=== PATIENT | female | born 1970 | race Caucasian/White ===

== ENCOUNTER 2018-05-07 17:58 | Emergency (ER) | payer OTHER ==
--- NOTE | 2018-05-07 19:34 | CT ---
HEAD CT WITHOUT CONTRAST: 05/07/2018 HISTORY: Headaches. History of migraines. COMPARISON: None. TECHNIQUE: Serial axial CT imaging at 4.8 mm intervals, from the vertex through the skull base, without contrast . FINDINGS: The imaged paranasal sinuses and mastoid air cells are well aerated. No displaced calvarial fracture . No intracranial hemorrhage, midline shift, mass effect, or ventricular enlargement. IMPRESSION: No acute findings. POS: [facility]
[2018-05-07] MEDS ORDERED: Metoclopramide HCl 10 MG/2 ML VIAL ONE (20:15)
[2018-05-07] MEDS ORDERED: Ketorolac Tromethamine 30 MG/ML VIAL ONE (20:15)
== END 2018-05-07 22:14 | disposition home or self-care (01) ==
LOC: SCSER 17:58
DX: R51 Headache (principal); I62.9 Nontraumatic intracranial hemorrhage, unspecified
CPT/HCPCS: 70450; 96365; 96375; J1885; J2765

== ENCOUNTER 2020-10-11 00:16 | Inpatient (IN) | payer OTHER, SELFPAY ==
[2020-10-11 00:51] VITALS: BMI 34.7
[2020-10-11 01:35] LABS: Lactic Acid 0.5 mmol/L (0.5-2.2)
[2020-10-11 01:39] LABS: ALT (SGPT) 412 U/L (8-55); AST (SGOT) 199 U/L (5-34); Albumin 3.8 g/dL (3.5-5.0); Alkaline Phosphatase 517 U/L (40-110); Anion Gap 15 mmol/L (10-20); BUN (Urea Nitrogen) 14 mg/dL (9.8-20.1); Bilirubin, Total 17.2 mg/dL (0.2-1.2); Calc. Creatinine Clearance 105 mL/min (70-130); Calcium 9.3 mg/dL (7.8-10.44); Carbon Dioxide 24 mmol/L (22-29); Chloride 103 mmol/L (98-107); Estimated GFR-MDRD 67; Glucose 103 mg/dL (70-105); Lipase 11 U/L (8-78); Magnesium 2.1 mg/dL (1.6-2.6); Potassium 3.6 mmol/L (3.5-5.1); Protein, Total 6.8 g/dL (6.0-8.3); Sodium 138 mmol/L (136-145)
[2020-10-11 01:47] LABS: #Eosinphils 0.1 thou/uL (0.0-0.7); #Lymphocytes 1.2 thou/uL (1.20-3.40); #Monocytes 0.7 thou/uL (0.11-0.59); #Neutrophils 4.7 thou/uL (1.40-6.50); %Basophils 0.4 % (0.0-1.0); %Eosinophils 1.2 % (0.0-10.0); %Lymphocytes 18.5 % (21.0-51.0); %Neutrophils 69.9 % (42.0-75.0); Hemoglobin 13.9 g/dL (12.0-16.0); Mean Corpuscular HGB CONC 33.6 g/dL (32.0-36.0); Mean Corpuscular Hemoglobin 30.3 pg (27.0-31.0); Mean Corpuscular Volume 90.3 fL (78.0-98.0); Mean Platelet Volume 7.9 fL (7.4-10.4); Platelet Count 246 thou/uL (130-400); Red Blood Cell (RBC) Count 4.59 mill/uL (4.20-5.40); White Blood Cell (WBC) Count 6.7 thou/uL (4.8-10.8)
--- NOTE | 2020-10-11 01:47 | PDOC.HHP ---
Hospitalist HPI - History of Present Illness History of Present Illness: ADMISSION DATE: 10/11/2020 TIME OF ASSESSMENT: 0030 PRIMARY CARE PHYSICIAN: None, recently moved here from [place] CHIEF COMPLAINT: Abdominal pain and jaundice HPI: Patient presents to the emergency department today at [facility] with complaints of abdominal discomfort and jaundice. She states she first developed an upset stomach last Tuesday. By the weekend she was having difficulty tolerating any oral intake. Reports having loose stools that on Tuesday became white/kaminski in color. She also noted generalized weakness and was feeling feverish. States she thought that was due to her going through menopause however when her stool colors changed she opted to seek medical attention. Reports having yellowing of her skin as well as diffuse itching. She attempted to establish care with a primary care physician, she recently moved from [place]. She was unable to get an appointment and due to persisting symptoms opted to come into the emergency department today. Did not have any notes from [facility] regarding her visit or medications given but according to the patient she was treated with morphine for her pain. Patient states she has had an episode like this a few months ago during the summer. She had noted yellowing of her skin and light-colored stools with abdominal discomfort. She had recently moved from [place] at that time and again because of not having established care with a primary care physician she did not seek medical attention. States she increase her fluid intake and e ventually her symptoms resolved spontaneously and on their own. We do have a CD with imaging studies done which included an abdominal ultrasound that demonstrated choledocholithiasis with extra and intrahepatic biliary dilation. Cholelithiasis and gallbladder sludge present. There was mild gallbl adder wall thickening and hepatomegaly present. HIDA scan was recommended She had a CT of the abdomen done as well showing cholelithiasis with proximal common bile duct dilation of approximately 13 mm. Laboratory studies done showed an ALT of 434, AST 236, alk phos 464, total bilirubin of 15.6. CRP was 17.3. BUN 14 and creatinine normal. White cell count 7.7. Hemoglobin 15 and platelets 282. Urinalysis unremarkable except for leukocytes. ROS: At present the patient states that her abdominal discomfort is minimal. She states when she tries to eat or drink her abdomen becomes bloated and she feels worsening discomfort. Has not had any vomiting today. No hematemesis or blood per rectum. No melena. No chest pain palpitations or shortness of breath. No headaches or dizziness. All other review systems are negative. PAST MEDICAL HISTORY: None PAST SURGICAL HISTORY: 1. Partial hysterectomy SOCIAL HISTORY: Patient lives with her family. Denies any tobacco use or drug use. Rare alcohol consumption. She is fully independent at baseline. FAMILY HISTORY: Her mother is and of COPD. ALLERGIES: Codeine CURRENT MEDICATIONS: None - Exam General Appearance: NAD, awake alert General - other findings: VS: Temp 98.1, HR 70, RR 18, O2 sat 98% on room air, BP 127/70. Eye: scleral icterus ENT: normocephalic atraumatic, no oropharyngeal lesions Neck: supple, no lymphadenopathy Heart: RRR, no murmur, normal peripheral pulses Respiratory: CTAB, no wheezes, no rales, no ronchi, normal chest expansion Gastrointestinal: soft, non-distended, normal bowel sounds, no guarding, no rigidity, tender to palpation (mild discomfort with palpation in RUQ) Extremities: no edema Skin: normal turgor, no lesions, no rashes Neurological: cranial nerve grossly intact, normal sensation to touch, no weakness Musculoskeletal: normal tone, normal strength, no muscle wasting Psychiatric: normal affect, normal behavior, A&O x 3 Hospitalist Results - Labs Result Diagrams: 10/11/20 01:09 Lab results: Sodium 138 mmol/L (136-145) 10/11/20 01:09 Potassium 3.6 mmol/L (3.5-5.1) 10/11/20 01:09 Chloride 103 mmol/L (98-107) 10/11/20 01:09 Carbon Dioxide 24 mmol/L (22-29) 10/11/20 01:09 BUN 14 mg/dL (9.8-20.1) 10/11/20 01:09 Creatinine 0.88 mg/dL (0.6-1.1) 10/11/20 01:09 Glucose 103 mg/dL (70-105) 10/11/20 01:09 Lactic Acid 0.5 mmol/L (0.5-2.2) 10/11/20 01:09 Calcium 9.3 mg/dL (7.8-10.44) 10/11/20 01:09 Total Bilirubin 17.2 mg/dL (0.2-1.2) H 10/11/20 01:09 AST 199 U/L (5-34) H 10/11/20 01:09 ALT 412 U/L (8-55) H 10/11/20 01:09 Alkaline Phosphatase 517 U/L (40-110) H 10/11/20 01:09 Serum Total Protein 6.8 g/dL (6.0-8.3) 10/11/20 01:09 Albumin 3.8 g/dL (3.5-5.0) 10/11/20 01:09 Lipase 11 U/L (8-78) 10/11/20 01:09 - Radiology Interpretation CT scan - abdomen Status: report reviewed by me Hospitalist H&P A/P - Problem (1) Cholelithiasis with choledocholithiasis Code(s): K80.70 - CALCULUS OF GB AND BILE DUCT W/O CHOLECYST W/O OBSTRUCTION Status: Acute (2) Abdominal pain Code(s): R10.9 - UNSPECIFIED ABDOMINAL PAIN Status: Acute (3) Obstructive jaundice Code(s): K83.1 - OBSTRUCTION OF BILE DUCT Status: Acute - Plan Plan: Will obtain labs here including CBC, CMP, lipase and direct bilirubin. Will check lactic acid as well as coags. GI consult placed Keep NPO. IV fluids ordered. GI prophylaxis with Famotidine. DVT Prophylaxis with mechanical SCDs ordered. CODE STATUS FULL Surrogate decision maker: Victoria Appiah, her daughter. Case discussed with attending who agrees with plan as above.
[2020-10-11] MEDS: Sodium Chloride 0.9% 1,000 ML IV SCH ×2 (02:15→08:44)
[2020-10-11] MEDS ORDERED: diphenhydrAMINE 25 MG CAP PO PRN (02:53)
[2020-10-11 08:11] LABS: Cardiac Risk 15.6 (Less than 4.5)
--- NOTE | 2020-10-11 08:33 | PDOC.HOSPP ---
- Subjective Encounter Date: 10/11/20 (f/u jaundice) Encounter Time: 08:31 Subjective: Pt admitted overnight for choledocholithiasis/obstructive jaundice, abd pain. She c/o pain returning and headache. She denies any current nausea. - Objective Vital Signs & Weight: Vital Signs (12 hours) Temp Pulse Resp BP Pulse Ox 10/11/20 06:00 98.3 F 63 17 128/62 10/11/20 00:48 98.3 F 64 17 123/60 99 10/11/20 00:16 98.1 F 70 18 127/70 98 Weight Weight 196 lb I&O: 10/10/20 10/11/20 10/12/20 06:59 06:59 06:59 Intake Total 700 Output Total 250 Balance 450 Result Diagrams: 10/11/20 01:09 10/11/20 01:09 Hospitalist ROS - Medication Medications: Active Medications Generic Name Dose Route Start Last Admin Trade Name Freq PRN Reason Stop Dose Admin Sodium Chloride 1,000 mls @ 100 mls/hr 10/11/20 02:00 10/11/20 02:15 Normal Saline 0.9% IV 1,000 mls .Q10H DANIELLE Administration - Exam General Appearance: NAD Heart: RRR, no murmur Respiratory: CTAB, no wheezes Gastrointestinal: soft, non-distended, normal bowel sounds Gastrointestinal - other findings: ttp along RUQ Extremities: no cyanosis, no clubbing, no edema Hosp A/P (1) Abdominal pain Code(s): R10.9 - UNSPECIFIED ABDOMINAL PAIN Status: Acute (2) Cholelithiasis with choledocholithiasis Code(s): K80.70 - CALCULUS OF GB AND BILE DUCT W/O CHOLECYST W/O OBSTRUCTION Status: Acute (3) Obstructive jaundice Code(s): K83.1 - OBSTRUCTION OF BILE DUCT Status: Acute - Plan Abd pain/choledocholithiasis/obstructive jaundice - npo - ivf - gi consult - anticipate procedure today - because of the obstructive jaundice, will start zosyn with goal of reducing likelihood of ascending cholangitis dvt prophy - scd's gi prophy - famotidine code status full reviewed plan of care with patient, no questions or further needs at end of eval.
[2020-10-11] MEDS: Famotidine/PF 20 mg/2ml Vial SLOW IVP SCH ×2 (08:37→21:00)
[2020-10-11] MEDS: Morphine 2 MG/ML VIAL SLOW IVP PRN ×3 (08:37→16:19)
[2020-10-11] MEDS: Piperacillin/Tazobactam 3.375 GM in Sodium Chloride 0.9% 100 ML IVPB SCH ×3 (09:47→21:00)
[2020-10-11] MEDS ORDERED: Dexamethasone 20 MG/5 ML VIAL ONE (11:54)
[2020-10-11] MEDS ORDERED: PROPOFOL 200 MG/20 ML VIAL ONE (11:54)
[2020-10-11] MEDS ORDERED: Ondansetron PF 4 MG/2 ML Vial ONE (11:54)
[2020-10-11] MEDS ORDERED: Lidocaine 1% PF 5 ML VIAL ONE (11:54)
[2020-10-11] MEDS ORDERED: Rocuronium Bromide 10 MG/ML (10ML VIAL) ONE (11:54)
[2020-10-11] MEDS ORDERED: Ketorolac Tromethamine 30 MG/ML VIAL ONE (11:54)
[2020-10-11] MEDS ORDERED: Calcium Carbonate 500 MG ChewTAB PO PRN (12:25)
[2020-10-11 13:44] LABS: INR-International Normal Ratio 1.1; PTT 45.4 sec (22.9-36.1); Prothrombin Time 14.6 sec (12.0-14.7)
[2020-10-11] MEDS ORDERED: Promethazine HCl 25 MG/ML VIAL IM PRN ×2 (17:55→22:42)
[2020-10-11] MEDS ORDERED: Promethazine HCl 25 MG/ML VIAL SLOW IVP PRN ×2 (17:55→22:42)
[2020-10-11] MEDS ORDERED: Ondansetron HCl/PF 4 MG/2 ML Vial IVP PRN ×2 (17:55→22:42)
[2020-10-11] MEDS ORDERED: Fentanyl 250 MCG/5 ML VIAL ONE (18:10)
[2020-10-11] MEDS ORDERED: Bupivacaine 0.25% HCL 30 ML VIAL ONE (18:30)
[2020-10-11] MEDS ORDERED: EPINEPHrine 1 MG/ML AMP ONE (18:30)
[2020-10-11] MEDS ORDERED: Iothalamate Meglumine 60% 50 ML VIAL FS ONE (21:29)
[2020-10-11] MEDS ORDERED: Indomethacin 50 MG SUPP PR SCH (21:30)
--- NOTE | 2020-10-11 22:36 | RAD ---
ERCP: 10/11/2020 HISTORY: ERCP FINDINGS: A single image is provided. Contrast media is seen within a partially opacified common bile duct. The common bile duct is not fully assessed proximally or distally. No contrast media is seen within the duodenum. There appears to be contrast media in the region of the gallbladder fossa. Quest ion catheter material curling in the right upper quadrant/gallbladder fossa. IMPRESSION: The biliary tree is not optimally assessed on the single provided view. Please see above discussion.
[2020-10-11] MEDS ORDERED: Fentanyl 100 MCG/2 ML VIAL ONE (22:42)
--- NOTE | 2020-10-11 23:34 | OP ---
DATE OF PROCEDURE: 10/11/2020 PREOPERATIVE DIAGNOSES: 1. Acute cholecystitis with cholelithiasis. 2. Choledocholithiasis. POSTOPERATIVE DIAGNOSES: 1. Acute cholecystitis with cholelithiasis. 2. Choledocholithiasis. PROCEDURE PERFORMED: Laparoscopic cholecystectomy. ANESTHESIA: General endotracheal. ESTIMATED BLOOD LOSS: 50 mL. FLUIDS GIVEN: 1000 mL crystalloids. COUNTS: Sponge and instrument counts were verified as correct x2. COMPLICATIONS: None apparent at the time of operation. INDICATIONS FOR OPERATION: A 50-year-old woman presented with painful jaundice associated with right upper quadrant abdominal pain with weight loss. Clinical and radiographic examination were consistent with acute cholecystitis and cholelithiasis. Additionally, she is noted with choledocholithiasis with dilated common bile duct size. The patient is being brought to the operating room for laparoscopic cholecystectomy, following which she will undergo ERCP under the same setting of general anesthesia. DESCRIPTION OF OPERATION: Informed consent was obtained from the patient, who was brought to the operating room and placed in supine position. Following general anesthesia, abdomen was sterilely prepped and draped in usual fashion. The skin below the umbilicus was infiltrated with 0.25% Marcaine with epinephrine. A small curvilinear infraumbilical incision was made using an 11 scalpel. Umbilical stalk was grasped with Joy and elevated. Veress needle was inserted through the incision placed in the peritoneal cavity, through which the abdomen was insufflated with 3 L of CO2 gas. Intraabdominal pressure was noted at 3 mmHg. Following abdominal insufflation, Veress needle was removed and a 5 mm trocar was introduced using a Visiport under laparoscopy. Laparoscopy revealed proper placement of the port. No injuries to underlying structures. Additional laparoscopy revealed the right upper quadrant completely encased by omental adhesions, which obscured the liver and gallbladder. Under direct laparoscopy, a 12 mm epigastric and two 5 mm right lateral subcostal ports were placed after the overlying skin were infiltrated with 0.25% Marcaine with epinephrine and appropriate incision was made. The patient was placed in a reverse Trendelenburg position rotated to her left. I introduced a [place] dissector with cautery, using this to take down omental adhesions to expose the fundus of a markedly distended and tense gallbladder. I decided therefore to decompress the gallbladder. To achieve this, I used an Endo suction catheter with cautery to perform a cholecystotomy at the dome of the gallbladder, evacuating excess white bile. A Prestige grasper was then introduced through the right lateral subcostal port grasping the fundus of the gallbladder, which was elevated cephalad. Prestige grasper was introduced through the right lateral subcostal port grasping the Hafsa pouch, which was retracted laterally. The infundibulum of the gallbladder was quite sclerotic and there was extensive amount of adhesions around the area. Adhesions were meticulously taken down bluntly. I opened the peritoneum of the infundibulum, starting high to dissect off an anterior coursing cystic artery. The cystic duct was markedly dilated and sclerotic and I was able to meticulously dissect off surrounding structures following the cystic duct to its course as it enters into a markedly dilated common bile duct. The cystic artery was divided between clips applying 2 clips proximally and 1 clip at the junction of the cystic duct and gallbladder. The cystic duct was quite large and I was able to open the gallbladder at the infundibulum, evacuating excess white bile as multiple tiny stones egressed through the opening that I made. I decided therefore to amputate the gallbladder at this level since it appeared the cystic duct itself was occluded. The remainder of the gallbladder was removed from the liver bed using cautery and delivered off the abdominal cavity using an EndoCatch. Operative site was irrigated clear with saline. I introduced a #19 Baldev drain into the subhepatic space and allowing this to exit through the right lateral subcostal port site. The drain was secured to anterior abdominal wall using 2-0 silk suture. Fascia of the epigastric port was closed using 0 Vicryl suture and Endoclosure device under laparoscopy. Finding no other pathology, laparoscopy was terminated. Abdomen was desufflated after all ports and instruments were reported as correct x2. Skin incisions were then closed using 4-0 Monocryl suture in subcuticular fashion. Dermabond was applied over incisional closure. The patient tolerated this operation without any apparent complication and was turned over to Gastroenterology, who will proceed with ERCP. Job ID: [id number]
[2020-10-12] MEDS: Piperacillin/Tazobactam 3.375 GM in Sodium Chloride 0.9% 100 ML IVPB SCH ×7 (00:21→23:54)
[2020-10-12] MEDS: Morphine 2 MG/ML VIAL SLOW IVP PRN ×2 (00:47→05:15)
--- NOTE | 2020-10-12 04:58 | PRG ---
DATE OF SERVICE: 10/11/2020 SUBJECTIVE: The patient was seen this evening during rounds. She was lying in bed, resting comfortably and asleep with no signs of acute distress. Nursing reported no acute events. She is postoperative day 0, status post laparoscopic cholecystectomy for acute cholecystitis and cholelithiasis. OBJECTIVE: VITAL SIGNS: Temperature 97.8, pulse 89, respirations 18, oxygen saturation 94% on room air, blood pressure 142/63. GENERAL: Well-appearing middle-aged female, lying in bed, resting comfortably and asleep with no signs of acute distress. PULMONARY: Equal chest rise and fall. No signs of acute respiratory distress. ASSESSMENT: 1. Postop day 0, status post lap cholecystectomy for acute cholecystitis and cholelithiasis. 2. Jaundice. PLAN: Continue clear liquid diet and normal saline. Continue IV antibiotics. The patient to be up out of bed and ambulating in the morning. Repeat blood work in the morning. Dr. Eagle to re-evaluate in the morning time. Job ID: [id number]
[2020-10-12] MEDS: Sodium Chloride 0.9% 1,000 ML IV SCH ×5 (05:17→17:27)
[2020-10-12 07:22] LABS: Phosphorus 3.8 mg/dL (2.3-4.7)
[2020-10-12 07:26] LABS: ALT (SGPT) 365 U/L (8-55); AST (SGOT) 186 U/L (5-34); Albumin 3.6 g/dL (3.5-5.0); Alkaline Phosphatase 562 U/L (40-110); Anion Gap 17 mmol/L (10-20); BUN (Urea Nitrogen) 16 mg/dL (9.8-20.1); Bilirubin, Total 15.8 mg/dL (0.2-1.2); Calc. Creatinine Clearance 96 mL/min (70-130); Carbon Dioxide 21 mmol/L (22-29); Chloride 103 mmol/L (98-107); Estimated GFR-MDRD 61; Glucose 131 mg/dL (70-105); Magnesium 1.7 mg/dL (1.6-2.6); Protein, Total 6.6 g/dL (6.0-8.3); Sodium 137 mmol/L (136-145)
[2020-10-12 07:39] LABS: Lipase 3685 U/L (8-78)
[2020-10-12 08:00] LABS: Bilirubin, Direct 12.3 mg/dL (0.1-0.3)
[2020-10-12] MEDS ORDERED: oxyCODONE 5 MG TAB PO PRN (08:13)
[2020-10-12] MEDS ORDERED: Morphine 2 MG/ML VIAL SLOW IVP PRN ×2 (08:14→08:20)
--- NOTE | 2020-10-12 08:16 | PDOC.HOSPP ---
- Subjective Encounter Date: 10/12/20 (f/u choledocholithiasis) Encounter Time: 08:14 Subjective: Pt c/o worsening pain today - states the morphine is not helping. She denies any n/v or other concerns. - Objective Vital Signs & Weight: Vital Signs (12 hours) Temp Pulse Resp BP Pulse Ox 10/12/20 06:00 98.0 F 85 18 158/78 H 10/12/20 02:00 80 18 139/62 97 10/12/20 01:15 89 18 142/63 H 94 L 10/12/20 00:50 75 18 139/69 97 10/11/20 23:25 97.7 F 66 18 143/71 H 98 Weight Admit Weight 196 lb Weight 196 lb I&O: 10/11/20 10/12/20 10/13/20 06:59 06:59 06:59 Intake Total 700 1550 Output Total 250 1415 95 Balance 450 135 -95 Result Diagrams: 10/11/20 01:09 10/12/20 06:52 Additional Labs: Elevated lipase Hospitalist ROS - Medication Medications: Active Medications Generic Name Dose Route Start Last Admin Trade Name Freq PRN Reason Stop Dose Admin Calcium Carbonate 1,000 mg 10/11/20 12:25 10/11/20 12:54 Calcium Carbonate 500 Mg Chewtab PO 1,000 mg Q4H PRN Administration Heartburn or Indigestion Diphenhydramine HCl 25 mg 10/11/20 02:53 10/12/20 01:34 Diphenhydramine 25 Mg Cap PO 25 mg Q4H PRN Administration Itching Famotidine 20 mg 10/11/20 09:00 10/11/20 21:00 Famotidine/Pf 20 Mg/2ml Vial SLOW IVP Not Given Q12HR DANIELLE Sodium Chloride 1,000 mls @ 100 mls/hr 10/11/20 02:00 10/12/20 05:17 Normal Saline 0.9% IV 1,000 mls .Q10H DANIELLE Administration Piperacillin Sod/Tazobactam 100 mls @ 200 mls/hr 10/11/20 23:59 10/12/20 06:00 Sod 3.375 gm/ Sodium Chloride IVPB Not Given Q6HR DANIELLE - Exam General Appearance: NAD Heart: RRR, no murmur Respiratory: CTAB, no wheezes, no rales, no ronchi Gastrointestinal: soft Gastrointestinal - other findings: ttp throughout, hypoactive bowel sounds Extremities: no cyanosis, no clubbing, no edema Psychiatric: normal affect Hosp A/P (1) Abdominal pain Code(s): R10.9 - UNSPECIFIED ABDOMINAL PAIN Status: Acute (2) Cholelithiasis with choledocholithiasis Code(s): K80.70 - CALCULUS OF GB AND BILE DUCT W/O CHOLECYST W/O OBSTRUCTION Status: Acute (3) Obstructive jaundice Code(s): K83.1 - OBSTRUCTION OF BILE DUCT Status: Acute (4) Pancreatitis Code(s): K85.90 - ACUTE PANCREATITIS WITHOUT NECROSIS OR INFECTION, UNSP Status: Acute - Plan Abd pain/choledocholithiasis/obstructive jaundice with pancreatitis - s/p cholecystectomy and ERCP yesterday - NPO - Increase IVF rate - add morphine 4 mg option - appreciate Gen Surg and GI consults dvt prophy - scd's gi prophy - famotidine code status full reviewed plan of care with Dr Eagle and patient, no questions or further needs at end of eval.
[2020-10-12] MEDS ORDERED: Promethazine HCl 25 MG/ML VIAL IM PRN (08:25)
[2020-10-12] MEDS ORDERED: diphenhydrAMINE 25 MG CAP PO PRN (08:25)
[2020-10-12] MEDS ORDERED: diphenhydrAMINE 50 MG/ML VIAL IM PRN (08:25)
[2020-10-12] MEDS ORDERED: diphenhydrAMINE 50 MG/ML VIAL IVP PRN (08:25)
[2020-10-12] MEDS ORDERED: Naloxone HCl 0.4 mg/ml Vial IV PRN (08:25)
[2020-10-12] MEDS ORDERED: Ondansetron PF 4 MG/2 ML Vial IVP PRN (08:25)
[2020-10-12 08:27] LABS: #Lymphocytes 0.4 thou/uL (1.20-3.40); #Monocytes 0.4 thou/uL (0.11-0.59); #Neutrophils 9.1 thou/uL (1.40-6.50); %Basophils 0.1 % (0.0-1.0); %Eosinophils 0.1 % (0.0-10.0); %Lymphocytes 4.2 % (21.0-51.0); %Monocytes 4.2 % (0.0-10.0); %Neutrophils 91.3 % (42.0-75.0); Mean Corpuscular HGB CONC 34.2 g/dL (32.0-36.0); Mean Corpuscular Hemoglobin 30.8 pg (27.0-31.0); Mean Corpuscular Volume 90.2 fL (78.0-98.0); Mean Platelet Volume 8.3 fL (7.4-10.4); Platelet Count 276 thou/uL (130-400); RBC Distribution Width 13.1 % (11.5-14.5); Red Blood Cell (RBC) Count 4.55 mill/uL (4.20-5.40)
[2020-10-12] MEDS ORDERED: Communication Order-Pharmacy FS SCH (08:30)
[2020-10-12] MEDS: Enoxaparin Sodium 40 MG/0.4 ML SYRINGE SC SCH (08:52)
[2020-10-12] MEDS: Famotidine/PF 20 mg/2ml Vial SLOW IVP SCH ×2 (08:53→21:10)
[2020-10-12] MEDS: Ketorolac Tromethamine 30 MG/ML VIAL IVP PRN ×2 (08:53→21:03)
--- NOTE | 2020-10-12 11:15 | PRG ---
DATE OF SERVICE: 10/12/2020 SUBJECTIVE: Ms. Banks is a 50-year-old woman, postop day #1, status post laparoscopic cholecystectomy, followed by ERCP with common bile duct stone extraction. The patient is awake and alert this morning. She reports 9/10 abdominal pain, which is not well controlled with current analgesics. Her urinary output remains adequate for her weight. Soy-Stafford drain returns moderate amount of serosanguineous fluid. OBJECTIVE: VITAL SIGNS: This morning include blood pressure 179/82, pulse 85, respiratory rate is 18, temperature 98.3 degrees Fahrenheit, oxygen saturation 99% on room air. HEENT: She remains with bilateral scleral icterus. She is jaundiced. HEART: Reveals regular rate and rhythm. LUNGS: Clear to auscultation bilaterally. Her breathing is regular and nonlabored. ABDOMEN: Soft. Diffusely tender to palpation. NEUROLOGIC: Reveals no focal deficits present. LABORATORY FINDINGS: Today include a CBC with 10,000 white blood cells, hemoglobin and hematocrit are stable at 14.0 and 41.1 respectively, and platelet count is 276,000. Metabolic profile; sodium 137, potassium 4.0, chloride is 103, bicarb is 21, BUN is 16, creatinine is 0.96, glucose 131, magnesium is 1.7, phosphorus 3.8, total bilirubin is 15.8, direct bilirubin is 12.3, AST and ALT marginally improving at 186 and 365 respectively, this is in contrast to 199 and 412 yesterday, alkaline phosphatase remains elevated at 562. Serum lipase which was normal yesterday, is now markedly elevated at 3685. IMPRESSIONS: 1. Postop day #1, status post laparoscopic cholecystectomy for acute on chronic cholecystitis with cholelithiasis as well as ERCP for choledocholithiasis. 2. Acute gallstone pancreatitis. PLAN: The patient will be placed on bowel rest. We will start a TOY MAKER for better pain management. We will increase activity as the patient tolerates. Job ID: [id number]
--- NOTE | 2020-10-12 11:41 | CON ---
DATE OF CONSULTATION: 10/11/2020 REQUESTING PHYSICIAN: Isa Grewal MD HISTORY: Ms. Banks is a 50-year-old woman who presented to a freestanding emergency department yesterday complaining of worsening abdominal pain associated with nausea and real-colored stools. She has been fatigued and lost approximately 30 pounds over the last several months, which she attributed to the stress of moving. She recalls having multiple episodes of diarrhea, which 3 days ago, she noticed that her stool had no color and floated. Additionally, she has been jaundiced over the last 3 to 4 days with associated pruritus. She denies any fevers or chills. She had experienced a similar episode of abdominal pain associated with some jaundice several months ago, which resolved spontaneously. During her visit at [facility] Emergency Department workup included CT scan of the abdomen and pelvis as well as ultrasound, which were significant for distended gallbladder with gallbladder wall thickening, intra and extrahepatic biliary ductal dilatation as well as cholelithiasis and choledocholithiasis. At the time of my evaluation, she is awake and alert. She reports adequate pain control. PAST MEDICAL HISTORY: She denies any previous medical problems. PAST SURGICAL HISTORY: Pertinent for partial hysterectomy. SOCIAL HISTORY: She is , lives at home with her family. She denies any cigarette smoking, ethanol, or illicit drug abuse. FAMILY HISTORY: Notable for mother who from complications of COPD. She denies any family history of colon cancer, inflammatory bowel disease, heart disease, or diabetes mellitus. MEDICATIONS: Pre-hospitalization medication includes multiple vitamins. ALLERGIES: TO CODEINE. REVIEW OF SYSTEMS: Ten-point review of systems essentially unremarkable except as stated in Past Medical History and Chief Complaint. PHYSICAL EXAMINATION: GENERAL: This reveals a 50-year-old normally developed woman, who is otherwise coherent, interactive, and appears stated age. The patient is alert and oriented x3, appears to be in no acute distress at the time I evaluated her this afternoon. VITAL SIGNS: At the time included a blood pressure of 173/81, pulse 74 respiratory rate is 18, maximum temperature in the last 24 hours is 98.3 degrees Fahrenheit, oxygen saturation 98% on room air. HEENT: Reveals severe bilateral scleral icterus. Pupils are equal, round, reactive to light and accommodation. NECK: She has no jugular venous distention noted. HEART: Reveals regular rate and rhythm. No murmurs or gallops auscultated. LUNGS: Clear to auscultation bilaterally. Her breathing is regular and nonlabored. ABDOMEN: Soft and nondistended. She has moderate right upper quadrant tenderness to palpation with a negative Coppola sign. Liver and spleen nonpalpable below costal margins. NEUROLOGIC: Reveals no focal deficits present. MUSCULOSKELETAL: Reveals severe jaundice. She has no motor or sensory deficit identified. LABORATORY FINDINGS: Today include a CBC with 6700 white blood cells, hemoglobin and hematocrit of 13.9 and 41.4 respectively, platelet count is 246,000. PTT and INR of 45.4 and 1.1 respectively. Metabolic profile; sodium 138, potassium 3.6, chloride is 103, bicarb 24, BUN 14, creatinine 0.88, glucose 103. Lactic acid 0.5. Total bilirubin 17.2 with a direct bilirubin of 12.5, AST and ALT are 199 and 412 respectively, alkaline phosphatase is also elevated at 517. Serum lipase is normal at 11. I did personally review the accompanying CT scan of the abdomen and pelvis as well as the abdominal ultrasound, which were remarkable for: 1. Distended gallbladder with multiple intraluminal gallstones and biliary sludge. 2. There is biliary ductal dilatation. 3. Common bile duct is also dilated for this patient's age, at 13 mm in diameter. IMPRESSION: 1. Acute cholecystitis with cholelithiasis. 2. Choledocholithiasis with painful jaundice. RECOMMENDATIONS: Laparoscopic cholecystectomy followed by ERCP. Above findings and plan have been discussed with the patient, who indicates understanding of information provided. I have advised of the risks and benefits of proposed surgery to include, but not limited to bleeding, infection, injury to bile duct or surrounding structures. This visit and information was provided to the patient in the presence of her nurse. The patient indicated understanding of information provided. I have answered her questions. The patient has granted consent for the surgical intervention. Thank you again, Dr. Grewal, for allowing me the opportunity to participate in the care of this patient. Job ID: [id number]
--- NOTE | 2020-10-12 11:51 | CON ---
DATE OF CONSULTATION: 10/11/2020 HISTORY OF PRESENT ILLNESS: This is a 50-year-old female, seen in [facility] last night with abdominal pain, nausea, and some fever.. The pain started about nine days ago, and she tried to go to her primary care doctor, but she was not able to do it. The pain is over the right upper quadrant and epigastric area. The pain is crampy in nature and at times mild to moderate. The pain got worse last night and she went to the ER. In the [facility] ER, she had an abdominal sonogram and was found to have dilation of the common bile duct and gallstones. Liver function test was markedly elevated. Her bilirubin 17.2 mg and the transaminases are markedly elevated to AST of 199, ALT of 412, alkaline phosphatase 517. Abdominal CAT scan again shows confirmation of the sonogram findings. The patient had similar episodes in the summer of this year and worsening jaundice, abdominal pain, and nausea. After a few days, it got better. She did not seek any medical help. Apparently, she had moved from [place] to [facility] five months ago. She had done well until about nine days ago when she had recurrence of abdominal pain. Her symptoms persisted and got slowly progressively worse. She also has some low-grade fever. She had no relevant history. ALLERGIES: NO KNOWN DRUG ALLERGIES. SOCIAL HISTORY: The patient does not smoke or drink alcohol. MEDICAL ILLNESSES: None. SURGERIES: 1. Tubal ligation. 2. Partial hysterectomy. FAMILY HISTORY: Nonrelevant. REVIEW OF SYSTEMS: A 10-point system review. CONSTITUTIONAL: History of some fever off and on recently. No history of any weight loss. No history of any change in exercise tolerance. HEAD: No chronic headache. No dizziness. EENT: No diplopia. No impaired vision. No hearing loss. No nose bleed. No sore throat. BREASTS: No breast masses. No lumps. LUNGS: No chronic coughing, hemoptysis, or dyspnea. CARDIOVASCULAR SYSTEM: No chest pain. No palpitation. No dyspnea. GI: Abdominal pain, nausea, vomiting, and also history of low-grade fever, dark urine and real-colored stools. She also had some itching off and on. : No dysuria or hematuria. MUSCULOSKELETAL: Nonrelevant. NEURO: Nonrelevant. ENDOCRINE: Nonrelevant. HEMATOLOGICAL: Nonrelevant. PHYSICAL EXAMINATION: GENERAL: She appears very comfortable. She is jaundiced. She is awake, alert, and communicative. VITAL SIGNS: Afebrile. Pulse is 65, blood pressure 175/79. HEENT: Conjunctivae icteric. NECK: Supple. No adenitis or thyromegaly noted. CARDIOVASCULAR SYSTEM: Normal heart sounds. LUNGS: Clear to auscultation. ABDOMEN: Soft. Abdomen is nondistended. Abdomen is tender over the right upper quadrant and epigastric area. There is no rebound or guarding. No organomegaly. No masses. Bowel sounds are normal. EXTREMITIES: Reveal no edema. LABORATORY DATA: Show sodium 138, potassium 3.6, chloride 103, bicarb 24, BUN is 14, creatinine 0.88, glucose is 103, calcium 9.3, magnesium 2.1, bilirubin 17.2, direct bilirubin 12.5. AST 199, ALT 412, alkaline phosphatase 517, lipase 11, triglycerides 75, cholesterol 311. CBC has normal WBC count, normal hemoglobin and hematocrit, the polymorphs 69, lymphocytes 18. Abdominal sonogram shows dilation of common bile duct and gallstones. CLINICAL IMPRESSION: 1. Cholestatic jaundice with biliary obstruction. 2. Gallstones. 3. Previous partial hysterectomy. PLAN: ERCP and also recommend surgical input. The patient was explained about the ERCP procedure in detail. Potential risks like bleeding, perforation, sepsis, pancreatitis, and sometimes failure to cannulate. She understood the procedure. I did talk to Dr. Isa Grewal about having a surgical input. I will plan the ERCP as soon as possible today. Job ID: [id number] [facility]
[2020-10-12] MEDS: HYDROmorphone 10 mg/100 ml CADD IVPB PRN (13:07)
--- NOTE | 2020-10-12 13:29 | PRG ---
DATE OF SERVICE: 10/12/2020 SUBJECTIVE: A 50-year-old female hospitalized 2 days ago with abdominal pain, deep jaundice, and evidence of biliary obstruction. She underwent a laparoscopic cholecystectomy by Dr. Eagle last night and apparently there was a bile leak noted during the surgery. She underwent ERCP last night with phlebotomy and stone extraction with multiple stones removed. She had a biliary stent placement done last night. The patient continues complaining of abdominal pain. No nausea, no vomiting. The serum lipase was bumped up today, I believe most likely asymptomatic elevation and acute pancreatitis. There is no contrast injected during the ERCP. The liver function does really not coming down as expected. The bilirubin level remains high at 15.8, direct bili 12.3, AST 186, ALT 365, alkaline phosphatase 562. Lipase is 3685. OBJECTIVE: GENERAL: She is deeply jaundiced, in no distress. She got some pain medicine before I came to see her. Afebrile. VITAL SIGNS: Pulse is 85, blood pressure 179/82. CARDIOVASCULAR SYSTEM: Within normal limits. LUNGS: Within normal limits. ABDOMEN: Soft. Abdomen is nondistended. Abdomen is mildly tender over the right upper quadrant epigastric area. There is no rebound or guarding. IMPRESSION: 1. Status post laparoscopic cholecystectomy, bile leak. 2. Status post ERCP, sphincterotomy and stone extraction. 3. Status post biliary stent placement, 11 x 7. Overall impression; I am really not sure why the LFTs not coming down. The stent was in good place. Unfortunately, when I went to review the films, I had only one spot film and the other films probably did not come through when they tried to take pictures. Therefore final picture taken after stent was placed. However, there is only one picture came through. I have reviewed the pictures with Dr. Nathan and there is apparently a biliary leak. Interestingly, I could not really see the proximal ducts with the one picture. I am little concerned there could be an obstruction above the area of the bifurcation. I am little concerned about possible the bile duct. Will talk to Dr. Nathan, radiologist. PLAN: 1. Obtain a KUB of abdomen to look for the stent placement site. 2. HIDA scan stat to see for any biliary blockage. This was conveyed to the patient. 3. Follow up LFTs and lipase. Job ID: [id number]
--- NOTE | 2020-10-12 13:34 | RAD ---
Abdomen one view HISTORY: Abdominal pain. Biliary stent placement. FINDINGS: Mild gaseous distention of the colon and small bowel. Double bowel wall sign consistent wit h pneumoperitoneum from recent surgery. Radiopaque surgical drain overlies the right lateral abdomen. Hemostasis clips over the gallbladder f josh. A curved biliary stent projects over the expected location of the common bile duct, in good radiograp hic position. Findings were discussed with Dr. Resendiz at the time of the exam.
--- NOTE | 2020-10-12 14:28 | OP ---
DATE OF PROCEDURE: 10/11/2020 PREOPERATIVE DIAGNOSES: Positive jaundice, choledocholithiasis. POSTOPERATIVE DIAGNOSIS: Multiple common bile duct stone. OPERATIVE PROCEDURE: 1. Endoscopic retrograde cholangiopancreatography. with papillotomy. 1. Endoscopic retrograde cholangiopancreatography with balloon sweep of bile duct with extraction of common duct stone. 2. Endoscopic retrograde cholangiopancreatography with stent placement, size 11 x 7 cm because of bile leak noted during the procedure. DESCRIPTION OF PROCEDURE: The patient has undergone a laparoscopic cholecystectomy nearly 2 nights ago. Apparently, there was a suspicion of bile leak. There were also multiple defects in the bile duct during cholangiogram. The patient was intubated already for the surgical procedure. The patient was transferred to the fluoroscopy table. The patient was placed in left lateral position and turned on her stomach. The patient was also given Indocin suppositories 50 mg before the procedure. A bite block was placed. A Pentax video duodenoscope under direct vision passed down the oropharynx past the GE junction into the stomach and rapidly into the descending duodenum. The papilla was identified. The papilla appears to be of normal size, no bulging or any abnormal findings noted. There was no bile drainage noted. A papillotome was used to cannulate the bile duct over a guidewire selectively. Upon injection of the common bile duct contrast, the duct appears slightly dilated. There were at least 2 or 3 filling defects seen. Also at the cystic duct area, there was contrast extravasation indicating a bile leak. A generous papillotomy was made at 12 o'clock position about 1.5 cm. Following the papillotomy, there was brisk drainage of bile and multiple small pigment stones came out. The papillotome was changed to a biliary balloon size 9 to 12 mm. The balloon was inflated and was brought across the papilla with extraction of two good-sized stones measuring approximately 1+ cm. Both stones were pigmented. Subsequently, occlusion cholangiogram showed no more filling defects.It was elected to place a stent due to contrast extravasating out side the bile duct. The catheter advanced over guidewire into the bile duct. Over the catheter, biliary stent_size 11 x 7 advanced into the bile duct with out difficulty. The stent was left in place and it appears to be in good position. This was confirmed by fluoroscopy. The stomach was decompressed and the scope removed. RECOMMENDATIONS: 1. We will do repeat liver function tomorrow. 2. Clear liquid diet. 3. If she does well hopefully she can go home in the next 24 hours. Job ID: [id number] [facility]
--- NOTE | 2020-10-12 14:28 | NM ---
Radionucleotide hepatobiliary scan HISTORY: Abdominal pain. Evaluate for biliary leak and common duct obstruction. FINDINGS: Early images show physiologic uptake of radiotracer throughout the hepatic parenchyma. At 1 hour, slightly curvilinear uptake is present near the diane hepatis. No uptake is evident within bowel. At 2 hours, there is more clear definition of uptake within the central hepatic ducts. No uptake seen within the distal common bile duct or bowel. Uptake is seen within the surgical drain exiting the right abdomen. IMPRESSION : Evidence of bile leak, although the exact point of leak is not delineated on this exam, as it is deco mpressed by the surgical drain. Nonvisualization of the distal common bile duct and duodenum suggestive of high-grade or complete mariya tral hepatic biliary obstruction. Findings were discussed with Dr. Resendiz at time the exam. Code CR.
[2020-10-12] MEDS: Labetalol HCl 100 MG/20 ML VIAL SLOW IVP PRN (17:19)
--- NOTE | 2020-10-12 18:17 | MRI ---
MRCP: 10/12/2020 HISTORY: Abdominal pain, evaluate common bile duct. Evidence of biliary leak. Recent ERCP with common bile duct stent placement. History of removal of pus and stones from the common bile duct during ERCP. Recent hepatobiliary scan demonstrating evidence of biliary leak into a drainage tube along the under surface of the diane hepatis TECHNIQUE: Multiplanar multisequence MR imaging of the abdomen without contrast using the MRCP protoc ol FINDINGS: Patchy linear abnormality noted in the lung bases with probable small volume pleural fluid bilaterally. There is a postoperative drain inserted via an anterior lateral mid abdominal approach terminating in the region of the diane hepatis. There is moderate intrahepatic biliary dilatation involving the right and left hepatic ducts. The proximal common bile duct appears dilated, measuring approximately 1.1 cm. There is a T1 and T2 hypointense structure on coronal images 18 and 19 of the T2 sequence measuring 1 cm. This structure is at the distal tip of the dilated CBD. The common bile duct cannot b e discretely visualized distal to this. This is felt to likely be proximal to the common bile duct stent placed during recent ERCP. However, the common bile duct stent cannot be discretely visualized. This T1 and T2 hypointense structure is suspicious for a stone, possibly within the common bile duct causing common bile duct obstruction. There is extensive increased T2 signal within the diane hepatis anterior to and inferior to the gastr ic body, and extending inferiorly along the anterior pararenal space on the right. There is extensive increased T2 signal consistent with fluid surrounding the pancreas and extending into the l eft anterior pararenal space. Free fluid also extends superiorly into the left upper quadrant adjacent to the spleen. The distal nonvisualization of the common bile duct and the fluid within the diane hepatis supports the evidence of biliary leak seen on recent hepatobiliary scan. It is impossible to distinguish on the basis of this examination where the source of the biliary leak is em anating. This could represent leakage from the cystic duct remnant associated with recent cholecystectomy and/or could signify leak from an injured common bile duct. T2 hyperintense structures within both kidneys are most consistent with cysts. No acute osseous abnor mality is seen. No lymphadenopathy is apparent. Free intraperitoneal air is present, consistent with recent postoperative state. IMPRESSION: Dilated proximal common bile duct and intrahepatic ducts consistent with common bile duct obstruction. T2 and T1 hypointense structure at the inferior aspect of the dilated CBD may signify an obstructing stone within the duct. Extensive free fluid consistent with a biliary leak, location u ncertain on the basis of this exam. The biliary leak may be related to the cystic duct remnant or could be related to a common bile duct injury. There is evidence of extensive pancreatitis. Delineation of the area of leak would likely require injection of contrast media into the biliary angie e either via percutaneous cholangiogram or repeat ERCP. Results were discussed with Dr. Eagle at 6:00 PM 10/12/2020
--- NOTE | 2020-10-12 19:16 | PRG ---
DATE OF SERVICE: 10/12/2020 This is a 50-year-old female, hospitalized with obstructive jaundice, common bile duct stone, and dilation of common biliary tree. She underwent laparoscopic cholecystectomy followed by an ERCP and a stent placement yesterday. The patient's LFTs did not come down. She continued to have abdominal pain. She also has evidence of pancreatitis. The patient had a HIDA scan, which revealed leakage of the bile in the gallbladder fossa. The duodenum. There is a possibility of common bile duct injury, and an MRCP was ordered by Dr. Eagle this afternoon. The MRCP was by Dr. Sabas Hedrick. The common bile duct was seen on MRCP and there was a possibility of common bile duct transection. Dr. Sabas Hedrick was reviewing the MRI with me and he is the one who called Dr. Eagle . It appears the [facility] needs [facility]. Job ID: [id number]
[2020-10-13] MEDS: Sodium Chloride 0.9% 1,000 ML IV SCH (01:59)
[2020-10-13] MEDS: Ketorolac Tromethamine 30 MG/ML VIAL IVP PRN ×3 (03:06→21:05)
--- NOTE | 2020-10-13 03:12 | PRG ---
DATE OF SERVICE: 10/12/2020 SUBJECTIVE: The patient was seen this evening during rounds. She was sitting up in bed with no signs of acute distress. She reported that since receiving her Dilaudid SHARED SERVICES REPRESENTATIVE, her pain is much better controlled. She did complain of some mild itching with no signs of swelling or shortness of breath. She has previously received IV Benadryl, but requesting to take it p.o. The patient did have an MRCP today. OBJECTIVE: VITAL SIGNS: Temperature 98.9, pulse 71, respirations 18, oxygen saturation 97% on room air, and blood pressure 123/61. GENERAL: A well-appearing middle-aged female, lying in bed with no signs of acute distress. PULMONARY: Equal chest rise and fall. No signs of acute respiratory distress. ABDOMEN: Soft, mildly tender to palpation and nondistended. ASSESSMENT: 1. Postop day #1, status post laparoscopic cholecystectomy for acute cholecystitis and cholelithiasis. 2. Concern for a possible bile duct leak or retained stone in the biliary tree. PLAN: Continue current n.p.o. with normal saline 150 an hour, continue Dilaudid SHARED SERVICES REPRESENTATIVE. Continue IV antibiotics. The patient will be seen by Dr. Eagle in the morning to discuss further evaluation and management postoperatively. If the patient's condition is to change overnight, Trauma Team will contact Dr. Eagle this evening. Job ID: [id number]
[2020-10-13] MEDS: Piperacillin/Tazobactam 3.375 GM in Sodium Chloride 0.9% 100 ML IVPB SCH ×3 (05:55→17:21)
--- NOTE | 2020-10-13 05:56 | PRG ---
DATE OF SERVICE: 10/12/2020 This is a 50-year-old female with biliary obstruction, cholecystitis, and obstructive jaundice. She underwent laparoscopic cholecystectomy by Dr. Eagle last night. This was followed by the ERCP by me and the cholangiogram showed filling defects. Initially, I felt the bile ducts visualized, however, with continued injection I saw a tract leading on the left side, and I presumed to be left hepatic duct. However, does appear to be left hepatic duct. I reviewed the x-rays this morning with Dr. Nathan. The bile duct and does not really flow into the proximal bile duct during the ERCP . There is contrast leak of the gallbladder fossa, also dye tracking down the left side almost simulating what I first thought was the left hepatic duct. Her liver function does not come down today. There is a concern for bile duct obstruction about the area of stent. She had a HIDA scan today and the HIDA scan again shows no contrast, visualization of the duodenum, but the gallbladder fossa. A flat abdomen done showed bile duct stent to be in good place. My concern is that the common bile duct was probably clipped, which could account for the liver functions are not coming down. The elevated lipase is most likely incidental, I do not think it has caused pancreatitis more of asymptomatic elevation. I did talk to Dr. Eagle a few minutes ago, I explained to him the possibility of common bile duct being clipped. He has planned to go on to do an MRCP today and we will make some recommendations afterwards. Job ID: [id number]
[2020-10-13 06:33] LABS: #Basophils 0.1 thou/uL (0.0-0.2); #Eosinphils 0.2 thou/uL (0.0-0.7); #Lymphocytes 1.1 thou/uL (1.20-3.40); #Monocytes 0.5 thou/uL (0.11-0.59); #Neutrophils 9.3 thou/uL (1.40-6.50); %Basophils 0.6 % (0.0-1.0); %Eosinophils 1.7 % (0.0-10.0); %Lymphocytes 9.6 % (21.0-51.0); %Monocytes 4.9 % (0.0-10.0); %Neutrophils 83.1 % (42.0-75.0); Hemoglobin 12.9 g/dL (12.0-16.0); Mean Corpuscular HGB CONC 33.7 g/dL (32.0-36.0); Mean Corpuscular Hemoglobin 31.2 pg (27.0-31.0); Mean Corpuscular Volume 92.8 fL (78.0-98.0); Mean Platelet Volume 7.6 fL (7.4-10.4); Platelet Count 275 thou/uL (130-400); RBC Distribution Width 13.6 % (11.5-14.5); Red Blood Cell (RBC) Count 4.12 mill/uL (4.20-5.40); White Blood Cell (WBC) Count 11.2 thou/uL (4.8-10.8)
[2020-10-13 07:00] LABS: ALT (SGPT) 214 U/L (8-55); AST (SGOT) 72 U/L (5-34); Albumin 3.2 g/dL (3.5-5.0); Alkaline Phosphatase 372 U/L (40-110); Anion Gap 11 mmol/L (10-20); BUN (Urea Nitrogen) 20 mg/dL (9.8-20.1); Bilirubin, Total 8.6 mg/dL (0.2-1.2); Calc. Creatinine Clearance 117 mL/min (70-130); Calcium 8.6 mg/dL (7.8-10.44); Carbon Dioxide 23 mmol/L (22-29); Chloride 106 mmol/L (98-107); Estimated GFR-MDRD 76; Globulin 2.9 g/dL (2.4-3.5); Glucose 82 mg/dL (70-105); Potassium 3.4 mmol/L (3.5-5.1); Protein, Total 6.1 g/dL (6.0-8.3); Sodium 137 mmol/L (136-145)
[2020-10-13 07:13] LABS: Lipase 4751 U/L (8-78)
--- NOTE | 2020-10-13 07:13 | PDOC.HOSPP ---
- Subjective Encounter Date: 10/13/20 (f/u choledocholithiasis) Encounter Time: 07:09 Subjective: Pt more comfortable with BATTERY TESTER. c/o itching - no relief from benadryl. She denies any n/v. She denies any problems with urinating - reported overnight UOP 550 ml. - Objective Vital Signs & Weight: Vital Signs (12 hours) Temp Pulse Resp BP Pulse Ox 10/13/20 03:00 97.8 F 75 18 127/58 L 10/12/20 23:50 98.9 F 71 18 123/61 10/12/20 20:55 97.8 F 79 18 147/64 H 97 Weight Admit Weight 196 lb Weight 196 lb I&O: 10/12/20 10/13/20 10/14/20 06:59 06:59 06:59 Intake Total 1550 1500 Output Total 1415 2325 Balance 135 -825 Result Diagrams: 10/13/20 06:17 10/13/20 06:17 Hospitalist ROS - Medication Medications: Active Medications Generic Name Dose Route Start Last Admin Trade Name Freq PRN Reason Stop Dose Admin Calcium Carbonate 1,000 mg 10/11/20 12:25 10/11/20 12:54 Calcium Carbonate 500 Mg Chewtab PO 1,000 mg Q4H PRN Administration Heartburn or Indigestion Diphenhydramine HCl 25 mg 10/12/20 08:25 10/12/20 21:15 Diphenhydramine 50 Mg/Ml Vial IVP 25 mg Q3H PRN Administration Itching Diphenhydramine HCl 25 mg 10/12/20 08:25 10/12/20 23:53 Diphenhydramine 25 Mg Cap PO 25 mg Q3H PRN Administration Itching Enoxaparin Sodium 40 mg 10/12/20 09:00 10/12/20 08:52 Enoxaparin Sodium 40 Mg/0.4 Ml Syringe SC 40 mg 0900 DANIELLE Administration Famotidine 20 mg 10/11/20 09:00 10/12/20 21:10 Famotidine/Pf 20 Mg/2ml Vial SLOW IVP 20 mg Q12HR DANIELLE Administration Hydromorphone HCl 0 mg 10/12/20 08:25 10/12/20 13:07 Hydromorphone 10 Mg/100 Ml Cadd IVPB 10 mg INF PRN Administration Pain Piperacillin Sod/Tazobactam 100 mls @ 200 mls/hr 10/11/20 23:59 10/13/20 05:55 Sod 3.375 gm/ Sodium Chloride IVPB 100 mls Q6HR DANIELLE Administration Ketorolac Tromethamine 30 mg 10/12/20 08:25 10/13/20 03:06 Ketorolac Tromethamine 30 Mg/Ml Vial IVP 10/15/20 08:26 30 mg Q6H PRN Administration Moderate Pain (4-6) Labetalol HCl 10 mg 10/12/20 16:09 10/12/20 17:19 Labetalol Hcl 100 Mg/20 Ml Vial SLOW IVP 10 mg Q4H PRN Administration Sbp Greater Than 150 - Exam General Appearance: NAD Heart: RRR, no murmur Respiratory: CTAB, no wheezes, no rales, no ronchi Gastrointestinal: soft, normal bowel sounds, tender to palpation Gastrointestinal - other findings: mild ttp throughout Extremities: no cyanosis, no clubbing, no edema Psychiatric: normal affect Hosp A/P (1) Abdominal pain Code(s): R10.9 - UNSPECIFIED ABDOMINAL PAIN Status: Acute (2) Cholelithiasis with choledocholithiasis Code(s): K80.70 - CALCULUS OF GB AND BILE DUCT W/O CHOLECYST W/O OBSTRUCTION Status: Acute (3) Obstructive jaundice Code(s): K83.1 - OBSTRUCTION OF BILE DUCT Status: Acute (4) Pancreatitis Code(s): K85.90 - ACUTE PANCREATITIS WITHOUT NECROSIS OR INFECTION, UNSP Stat us: Acute - Plan Abd pain/choledocholithiasis/obstructive jaundice with pancreatitis with possible bile leak s/p cholectystectomy and ERCP (Sep) - Drs. Eagle and Moises collaborating on plan of care - NPO - LFT's improved today, lipase is pending Hypokalemia - change IVF to NS with potassium and monitor dvt prophy - scd's gi prophy - famotidine code status full Reviewed plan of care with patient, no questions or further needs at end of eval.
[2020-10-13] MEDS: Enoxaparin Sodium 40 MG/0.4 ML SYRINGE SC SCH (08:08)
[2020-10-13] MEDS: Famotidine/PF 20 mg/2ml Vial SLOW IVP SCH ×2 (08:08→21:06)
[2020-10-13] MEDS: NS 0.9% w/ 20 MEQ KCL 1,000 ML/1,000 ML BAG IV SCH ×2 (08:08→15:34)
[2020-10-13 09:32] LABS: Magnesium 1.7 mg/dL (1.6-2.6); Phosphorus 2.7 mg/dL (2.3-4.7)
[2020-10-13] MEDS ORDERED: Potassium Phosphate 30 MMOL in Sodium Chloride 0.9% 250 ML 250 ML IVPB SCH (12:00)
[2020-10-13] MEDS ORDERED: Magnesium Sulfate 3 GM in Sodium Chloride 0.9% 100 ML IVPB SCH (12:00)
--- NOTE | 2020-10-13 12:21 | PRG ---
DATE OF SERVICE: 10/13/2020 SUBJECTIVE: Ms. Banks is a 50-year-old woman, postoperative day #2, status post laparoscopic cholecystectomy followed by postoperative endoscopic retrograde cholangiopancreatography with common bile duct stone extraction. The patient was seen yesterday, postoperative day #1 with elevated LFTs. At the time she was complaining of 8 to 9/10 abdominal pain. No nausea or vomiting. No fevers or chills. She has been on antibiotics since postop. She is passing flatus, but no bowel movement. She was noted on clinical examination to have acute pancreatitis. MRCP yesterday reveals no contrast within the distal common bile duct or small bowel. There is extravasation at the gallbladder fossa, which was unexpected given the gallbladder, which was transected at the infundibulum. The single view of the ERCP image noted guidewire, which was all the way to the liver, although the abdominal x-ray showed the biliary stent to be below the area of contrast extravasation. MRCP yesterday also showed a dilated common bile duct. This morning, the patient is awake and alert. She reports 3 to 4/10 abdominal pain with no nausea. She denies any dyspnea or syncope. She is still passing flatus, but not having any bowel movements. Urinary output remains adequate for this patient's age and weight. OBJECTIVE: VITAL SIGNS: Include blood pressure 141/78, pulse is 81, respiratory rate is 16, temperature is 98.4 degrees Fahrenheit, and oxygen saturation is 96% on room air. HEENT: She has decreasing scleral icterus as well as decrease in jaundice. HEART: Reveals regular rate and rhythm. No murmurs or gallops auscultated. LUNGS: Clear to auscultation bilaterally. Her breathing, regular, nonlabored. ABDOMEN: Soft with incisional tenderness to palpation with no significant peritoneal signs on examination. Soy-Stafford drain remains in place and is putting out a large amount of bilious fluid. Bowel sounds are present in all 4 quadrants. LABORATORY DATA: Laboratory findings today include a CBC with 11,200 white blood cells, hemoglobin and hematocrit are 12.9 and 38.2 respectively. The platelet count is 275,000. Metabolic profile; sodium 137, potassium 3.4, chloride is 106, bicarb is 23, BUN 20, creatinine 0.79, glucose is 82, magnesium is 1.7, and phosphorus is 2.7. Total bilirubin is now down to 8.6, compared to 15.8 yesterday. AST and ALT are also decreasing at 72 and 214 respectively compared to 186 and 365 respectively yesterday. Alkaline phosphatase is also decreasing at 372 compared to 562 yesterday. Serum lipase however is more elevated today at 4751 compared to 3685 yesterday. IMPRESSIONS: 1. Postoperative day #2 status post laparoscopic cholecystectomy. 2. Acute post endoscopic retrograde cholangiopancreatography pancreatitis. 3. Acute hypokalemia. 4. Acute hypomagnesemia. 5. Acute hypophosphatemia. 6. Resolving transaminitis. PLAN: 1. Continue with bowel rest and IV hydration with serial LFTs and lipase as I hope that this patient's pancreatitis will resolve. 2. I discussed with hepatobiliary surgeon from [facility], Dr. Bunch. He recommended that we will manage the patient conservatively and once the pancreatitis resolves and the patient is tolerating clear liquid diet, the patient could follow up with him in his clinic in [place]. 3. I have discussed the above plan with the patient in the presence of her nurse. She indicated understanding of information provided and agrees with the plan. We will correct current abnormal electrolytes. Job ID: [id number]
[2020-10-13] MEDS ORDERED: Potassium Phosphate 30 MMOL, Magnesium Sulfate 3 GM in Sodium Chloride 0.9% 250 ML 250 ML IVPB SCH (12:30)
[2020-10-13] MEDS: HYDROmorphone 10 mg/100 ml CADD IVPB PRN (15:08)
[2020-10-13] MEDS: Labetalol HCl 100 MG/20 ML VIAL SLOW IVP PRN (18:04)
[2020-10-13 20:15] LABS: ALT (SGPT) 184 U/L (8-55); AST (SGOT) 60 U/L (5-34); Albumin 3.4 g/dL (3.5-5.0); Alkaline Phosphatase 346 U/L (40-110); Bilirubin, Direct 6.5 mg/dL (0.1-0.3); Bilirubin, Total 8.8 mg/dL (0.2-1.2); Protein, Total 6.5 g/dL (6.0-8.3)
[2020-10-13 20:32] LABS: Lipase 2092 U/L (8-78)
[2020-10-14] MEDS: Piperacillin/Tazobactam 3.375 GM in Sodium Chloride 0.9% 100 ML IVPB SCH ×5 (00:11→23:19)
[2020-10-14] MEDS: NS 0.9% w/ 20 MEQ KCL 1,000 ML/1,000 ML BAG IV SCH ×2 (00:59→12:32)
--- NOTE | 2020-10-14 01:49 | PRG ---
DATE OF SERVICE: 10/13/2020 SUBJECTIVE: The patient was seen this evening during rounds. She was lying in bed with no signs of acute distress. She reported her pain is much better controlled. Stated she slept all day today, so she was awake at night. OBJECTIVE: VITAL SIGNS: Temperature 97.6, pulse 89, respirations 20, oxygen saturation 96% on room air, and blood pressure 145/66. GENERAL: Well-appearing, middle-aged female, lying in bed with no signs of acute distress. PULMONARY: Equal chest rise and fall. No signs of acute respiratory distress. ABDOMEN: Soft, mildly tender to palpation, nondistended. ASSESSMENT: Postop day 2 status post laparoscopic cholecystectomy due to cholecystitis and cholelithiasis. PLAN: Continue current n.p.o. diet. Continue [employer] and IV antibiotics. Continue IV fluids. Follow up lipase and LFTs in the morning. Lab values completed earlier this evening demonstrates improvement. Continue ambulation and pulmonary hygiene with incentive spirometry. Job ID: [id number]
--- NOTE | 2020-10-14 06:24 | PRG ---
DATE OF SERVICE: 10/13/2020 SUBJECTIVE: This is a 50-year-old female hospitalized over the weekend with abdominal pain, obstructive jaundice, abnormal LFTs, and also gallstones on sonogram. She underwent a laparoscopic cholecystectomy by Dr. Eagle on 10/11/2020 following the ERCP and stent placement. She had multiple pigmented stones removed in the ERCP. She had a size 11 x 7 cm stent placement done. Yesterday, after stent placement. She has continued abdominal pain. Unfortunately, she had findings of pancreatitis on lab data with lipase more than 3000. The patient had a HIDA scan which showed biliary leak. She also had MRCP done and the MRCP showed some cutoff of the CBD at the hilum. The patient has done well overnight. The patient appears actually much better today, although she has continued to have abdominal pain. There is no nausea or vomiting. Her liver function tests have started to coming down today as expected after the stent placement. LABORATORY DATA: Today shows the bilirubin down to 8.6, AST down to 72, ALT 214, alkaline phosphatase 372. Her lipase, however, has gone up to 4751. Her chem-7 is normal. Her magnesium is 1.7, phosphorus is 2.7. Her hemoglobin is 12.9, hematocrit is 38.2, WBC count 11,200, polymorphs 83, lymphocytes 9.6. OBJECTIVE: GENERAL: The patient appears comfortable compared to yesterday. VITAL SIGNS: Afebrile, pulse is 81, blood pressure is 140/72. SKIN: She has jaundice, but less intense than before. NECK: Supple. CARDIOVASCULAR SYSTEM: Normal heart sounds. LUNGS: Clear to auscultation. ABDOMEN: Soft and nondistended. Minimally tender over the epigastric area and towards left upper quadrant. No rebound or guarding. IMPRESSION: 1. Obstructive jaundice, gallstones. 2. Choledocholithiasis. 3. Status post laparoscopic cholecystectomy. 4. Endoscopic retrograde cholangiopancreatography with stent placement and also stone extraction. 5. Postoperative pancreatitis. The patient's ERCP on 10/11/2020 was very easy and not very difficult. The whole procedure took less than 30 minutes. 6. No pancreatic duct could be cannulated. The patient developed a lipase of 3000 postop. PLAN: 1. To keep her n.p.o. 2. Follow up LFTs and lipase. If lipase starts coming down may start clear liquid diet in the next 24 hours. Job ID: [id number]
[2020-10-14 07:00] LABS: #Eosinphils 0.3 thou/uL (0.0-0.7); #Lymphocytes 0.8 thou/uL (1.20-3.40); #Monocytes 0.5 thou/uL (0.11-0.59); #Neutrophils 9.4 thou/uL (1.40-6.50); %Basophils 0.2 % (0.0-1.0); %Eosinophils 2.3 % (0.0-10.0); %Lymphocytes 7.5 % (21.0-51.0); %Monocytes 4.8 % (0.0-10.0); %Neutrophils 85.1 % (42.0-75.0); Hemoglobin 11.8 g/dL (12.0-16.0); Mean Corpuscular HGB CONC 32.9 g/dL (32.0-36.0); Mean Corpuscular Hemoglobin 29.9 pg (27.0-31.0); Mean Corpuscular Volume 90.8 fL (78.0-98.0); Mean Platelet Volume 7.3 fL (7.4-10.4); Platelet Count 293 thou/uL (130-400); RBC Distribution Width 13.4 % (11.5-14.5); Red Blood Cell (RBC) Count 3.95 mill/uL (4.20-5.40); White Blood Cell (WBC) Count 11.1 thou/uL (4.8-10.8)
[2020-10-14 07:20] LABS: ALT (SGPT) 147 U/L (8-55); AST (SGOT) 48 U/L (5-34); Albumin 3.2 g/dL (3.5-5.0); Alkaline Phosphatase 298 U/L (40-110); Anion Gap 15 mmol/L (10-20); BUN (Urea Nitrogen) 10 mg/dL (9.8-20.1); Bilirubin, Direct 6.4 mg/dL (0.1-0.3); Bilirubin, Total 8.6 mg/dL (0.2-1.2); Calc. Creatinine Clearance 140 mL/min (70-130); Calcium 8.5 mg/dL (7.8-10.44); Carbon Dioxide 23 mmol/L (22-29); Chloride 102 mmol/L (98-107); Estimated GFR-MDRD Greater than 90; Glucose 80 mg/dL (70-105); Lipase 485 U/L (8-78); Magnesium 1.9 mg/dL (1.6-2.6); Phosphorus 2.3 mg/dL (2.3-4.7); Potassium 3.9 mmol/L (3.5-5.1); Protein, Total 6.2 g/dL (6.0-8.3); Sodium 136 mmol/L (136-145)
[2020-10-14] MEDS: Labetalol HCl 100 MG/20 ML VIAL SLOW IVP PRN ×2 (07:39→20:36)
[2020-10-14] MEDS: Enoxaparin Sodium 40 MG/0.4 ML SYRINGE SC SCH (09:58)
[2020-10-14] MEDS: Famotidine/PF 20 mg/2ml Vial SLOW IVP SCH ×2 (09:58→20:36)
[2020-10-14] MEDS ORDERED: traMADol HCl 50 MG TAB PO PRN ×2 (11:33)
[2020-10-14] MEDS: Acetaminophen 500 MG TAB PO SCH ×3 (12:54→23:08)
--- NOTE | 2020-10-14 14:02 | PDOC.HOSPP ---
- Subjective Encounter Date: 10/14/20 Encounter Time: 13:00 Subjective: Patient up in bed complains of mild abdominal pain. - Objective Vital Signs & Weight: Vital Signs (12 hours) Temp Pulse Resp BP BP Pulse Ox 10/14/20 12:03 98.8 F 96 20 145/80 H 97 10/14/20 07:57 98.6 F 100 20 170/98 H 99 10/14/20 07:39 89 170/98 H Weight Admit Weight 196 lb Weight 196 lb I&O: 10/13/20 10/14/20 10/15/20 06:59 06:59 06:59 Intake Total 1500 2430 Output Total 2325 2340 620 Balance -825 90 -620 Result Diagrams: 10/14/20 06:51 10/14/20 06:51 Hospitalist ROS - Review of Systems Gastrointestinal: reports: abdominal pain Genitourinary: denies: dysuria, frequency, incontinence, hematuria, retention, other Musculoskeletal: denies: neck pain, shoulder pain, arm pain, back pain, hand pain, leg pain, foot pain, other - Medication Medications: Active Medications Generic Name Dose Route Start Last Admin Trade Name Freq PRN Reason Stop Dose Admin Acetaminophen 1,000 mg 10/14/20 12:00 10/14/20 12:54 Acetaminophen 500 Mg Tab PO 1,000 mg Q6HR DANIELLE Administration Calcium Carbonate 1,000 mg 10/11/20 12:25 10/11/20 12:54 Calcium Carbonate 500 Mg Chewtab PO 1,000 mg Q4H PRN Administration Heartburn or Indigestion Diphenhydramine HCl 25 mg 10/12/20 08:25 10/12/20 21:15 Diphenhydramine 50 Mg/Ml Vial IVP 25 mg Q3H PRN Administration Itching Diphenhydramine HCl 25 mg 10/12/20 08:25 10/12/20 23:53 Diphenhydramine 25 Mg Cap PO 25 mg Q3H PRN Administration Itching Enoxaparin Sodium 40 mg 10/12/20 09:00 10/14/20 09:58 Enoxaparin Sodium 40 Mg/0.4 Ml Syringe SC 40 mg 0900 DANIELLE Administration Famotidine 20 mg 10/11/20 09:00 10/14/20 09:58 Famotidine/Pf 20 Mg/2ml Vial SLOW IVP 20 mg Q12HR DANIELLE Administration Piperacillin Sod/Tazobactam 100 mls @ 200 mls/hr 10/11/20 23:59 10/14/20 11:51 Sod 3.375 gm/ Sodium Chloride IVPB 100 mls Q6HR DANIELLE Administration Ketorolac Tromethamine 30 mg 10/12/20 08:25 10/13/20 21:05 Ketorolac Tromethamine 30 Mg/Ml Vial IVP 10/15/20 08:26 30 mg Q6H PRN Administration Moderate Pain (4-6) Labetalol HCl 10 mg 10/12/20 16:09 10/14/20 07:39 Labetalol Hcl 100 Mg/20 Ml Vial SLOW IVP 10 mg Q4H PRN Administration Sbp Greater Than 150 - Exam General - other findings: Patient appears jaundiced Eye: scleral icterus Neck: negative: supple, symmetric, no JVD, no thyromegaly, no lymphadenopathy, no carotid bruit, JVD Heart: negative: RRR, no murmur, no gallops, no rubs, normal peripheral pulses, irregular, diminshed peripheral pulses, murmur present, II/IV, III/IV Respiratory: negative: CTAB, no wheezes, no rales, no ronchi, normal chest expansion, no tachypnea, normal percussion, rales, rhonchi, tachypneic, wheezes Gastrointestinal: soft Gastrointestinal - other findings: Laparoscopic incisions noted Extremities: 1+ LE edema Hosp A/P (1) Abdominal pain Code(s): R10.9 - UNSPECIFIED ABDOMINAL PAIN Status: Acute (2) Cholelithiasis with choledocholithiasis Code(s): K80.70 - CALCULUS OF GB AND BILE DUCT W/O CHOLECYST W/O OBSTRUCTION Status: Acute (3) Obstructive jaundice Code(s): K83.1 - OBSTRUCTION OF BILE DUCT Status: Acute (4) Pancreatitis Code(s): K85.90 - ACUTE PANCREATITIS WITHOUT NECROSIS OR INFECTION, UNSP Status: Acute - Plan We will continue IV fluids and pain management. Patient started on clear liquid diet. Status post ERCP with stent. Status post laparoscopic cholecystectomy. Patient currently on DVT prophylaxis. LFTs trending down slowly.
--- NOTE | 2020-10-14 16:59 | PRG ---
DATE OF SERVICE: 10/14/2020 SUBJECTIVE: Ms. Banks is a 50-year-old woman, who is postoperative day #3, status post laparoscopic cholecystectomy followed by ERCP with common bile duct stone extraction. The patient developed postoperative pancreatitis. Today, she is awake and alert. She reports adequate pain control. She is passing flatus and has had a bowel movement. OBJECTIVE: VITAL SIGNS: Today include blood pressure 145/80, pulse 96, respiratory rate is 20, maximum temperature in last 24 hours is 98.8 degrees Fahrenheit, and oxygen saturation is 97% on room air. HEENT: Reveals normocephalic and atraumatic. Pupils are equal, round, and reactive to light and accommodation. She has decreasing scleral icterus present. HEART: Reveals regular rate and rhythm. LUNGS: Clear to auscultation bilaterally. Her breathing, regular and unlabored. ABDOMEN: Soft with incisional tenderness to palpation. No gross peritoneal signs present. Soy-Stafford drain remains in place and this returned 265 mL of bilious effluent over the previous 24 hours. NEUROLOGIC: Reveals no focal deficits present. LABORATORY FINDINGS: Today include a CBC with 11,100 white blood cells hemoglobin and hematocrit are stable at 11.8 and 35.8 respectively. Platelet count 293,000. Metabolic profile; sodium 136, potassium 3.9, chloride is 102, bicarb is 23, BUN is 10, creatinine 0.66, glucose is 80, magnesium 1.9, and phosphorus is 2.3. Total bilirubin stable at 8.6 with a direct bilirubin of 6.4, AST and ALT are decreasing at 48 and 147 respectively. Alkaline phosphatase is also decreasing at 298. This is in contrast to 346 yesterday. Serum lipase today is 485, it was 2092 yesterday. IMPRESSION: 1. Postoperative day #3, status post laparoscopic cholecystectomy. 2. Resolving acute postoperative pancreatitis. 3. Acute hypokalemia. 4. Acute hypomagnesemia. 5. Acute hypophosphatemia. PLAN: 1. Correct abnormal electrolytes. 2. The patient will be started on clear liquid diet. 3. We will start oral analgesics and discontinue all IV fluids and as we have monitored this patient's urinary output as endpoint of resuscitation. Above findings and plan discussed with the patient, who indicates understanding of information provided. I have answered her questions. Job ID: [id number]
[2020-10-14] MEDS ORDERED: Potassium Phosphate 30 MMOL in Sodium Chloride 0.9% 250 ML 250 ML IVPB SCH (17:00)
[2020-10-14] MEDS ORDERED: Magnesium 2 GM/50 ML 2 GM in Premix Bag 1 BAG IVPB SCH (17:00)
[2020-10-14] MEDS ORDERED: Sodium Chloride 0.9% 10 ML ONE (17:05)
[2020-10-15] MEDS: Labetalol HCl 100 MG/20 ML VIAL SLOW IVP PRN ×4 (00:08→20:51)
[2020-10-15] MEDS: Piperacillin/Tazobactam 3.375 GM in Sodium Chloride 0.9% 100 ML IVPB SCH ×3 (04:54→18:03)
[2020-10-15] MEDS: Acetaminophen 500 MG TAB PO SCH ×3 (04:54→18:02)
--- NOTE | 2020-10-15 05:45 | PRG ---
DATE OF SERVICE: 10/14/2020 SUBJECTIVE: This is a 50-year-old, very pleasant female, hospitalized on Tuesday night with abdominal pain, jaundice and biliary obstruction. She underwent cholecystectomy the following day by Dr. Eagle. She had the same day. There were multiple pigmented stones. The patient had a biliary stent placement because of bile leak. I would expect that liver function test will come back down very quickly, but it did not happen. Because of above reason, she had a HIDA scan and MRCP . Liver function tests started getting better yesterday. She had a drop in , also transaminases are . Her lipase level has come down to 485 today; it was as high as 3685. Labs from today, bilirubin down to 8.6, AST . CBC showed RECOMMENDATIONS: 1. May start the patient on clear liquid diet. 2. Follow up labs. 3. If tolerates clear liquid diet, diet can be advanced . She will probably need because of the MRCP showing stone in the bile duct . However, we will have to wait for a few days because of the recent . Job ID: [id number]
[2020-10-15 08:07] LABS: ALT (SGPT) 121 U/L (8-55); AST (SGOT) 49 U/L (5-34); Albumin 3.3 g/dL (3.5-5.0); Alkaline Phosphatase 270 U/L (40-110); Anion Gap 17 mmol/L (10-20); BUN (Urea Nitrogen) 9 mg/dL (9.8-20.1); Bilirubin, Total 9.1 mg/dL (0.2-1.2); Calc. Creatinine Clearance 140 mL/min (70-130); Calcium 8.8 mg/dL (7.8-10.44); Carbon Dioxide 20 mmol/L (22-29); Chloride 104 mmol/L (98-107); Estimated GFR-MDRD Greater than 90; Glucose 126 mg/dL (70-105); Lipase 90 U/L (8-78); Magnesium 2.1 mg/dL (1.6-2.6); Phosphorus 2.7 mg/dL (2.3-4.7); Potassium 3.9 mmol/L (3.5-5.1); Protein, Total 6.6 g/dL (6.0-8.3); Sodium 137 mmol/L (136-145)
[2020-10-15] MEDS: Famotidine/PF 20 mg/2ml Vial SLOW IVP SCH ×2 (09:37→20:50)
[2020-10-15] MEDS: Enoxaparin Sodium 40 MG/0.4 ML SYRINGE SC SCH (09:37)
[2020-10-15] MEDS: Amlodipine 10 MG TAB PO SCH (10:46)
--- NOTE | 2020-10-15 13:46 | PRG ---
DATE OF SERVICE: 10/15/2020 SUBJECTIVE: Ms. Banks is a 50-year-old woman who is postoperative day #4, status post laparoscopic cholecystectomy. She also had ERCP. The patient developed postoperative acute pancreatitis. This morning, she is awake and alert. She reports adequate pain control. She has had 2 bowel movements in the interval and is passing flatus. She is tolerating clear liquid diet. OBJECTIVE: VITAL SIGNS: This morning include blood pressure is 155/85, pulse 75, respiratory rate is 20, temperature is 98.1 degrees Fahrenheit, oxygen saturation is 98% on room air. HEENT: Residual bilateral scleral icterus present. HEART: Regular rate and rhythm. No murmurs or gallops auscultated. LUNGS: Clear to auscultation bilaterally. Her breathing is regular and nonlabored. ABDOMEN: Soft with incisional tenderness to palpation. Soy-Stafford drain remains in place and returned 370 mL of bilious effluent. NEUROLOGIC: No focal deficits present. LABORATORY FINDINGS: Today includes metabolic profile, sodium 137, potassium 3.9, chloride is 104, bicarb is 20, BUN is 9, creatinine 0.66, glucose is 126, magnesium 2.1, and phosphorus is 2.7. Total bilirubin is 9.1, it was 8.6 yesterday. Direct bilirubin is 7.0, it was 6.4 yesterday. AST and ALT were 49 and 121 respectively. They were 48 and 147 respectively yesterday. Alkaline phosphatase today is 270, down from 298 yesterday. Serum lipase today is 90, it was 485 yesterday and was as high as 4751 two days previously. IMPRESSION: 1. Postop day #4, status post laparoscopic cholecystectomy. 2. Resolving acute pancreatitis. PLAN: 1. Increase diet to full liquids. 2. We will repeat laboratory studies tomorrow and if stable, the patient will be discharged to follow up with Dr. Bunch with the Hepatobiliary service at [facility] on Wednesday, October 21, 2020. 3. We will increase activity as tolerated. Above findings and plan discussed with the patient who indicates understanding of information provided. I have answered her questions. Job ID: [id number]
--- NOTE | 2020-10-15 14:47 | PRG ---
DATE OF SERVICE: 10/15/2020 SUBJECTIVE: Ms. Shanelle Banks is a very pleasant 50-year-old female hospitalized over the weekend with jaundice, gallstones and common bile duct stone. She has undergone a laparoscopic cholecystectomy by Dr. Eagle followed by ERCP. The ERCP went very smoothly and I was able to take multiple stones out. Unfortunately, there was apparently 1 stone left behind, which I could not really see it on fluoroscopy. The patient underwent biliary stent placement because of the bile leak. The patient's LFTs did not come down as expected the following day. She underwent a HIDA scan, which showed bile leak and also had MRCP. The MRCP showed stone at the bifurcation. It appeared that stone was probably not seen initially. Unfortunately, she also developed post ERCP pancreatitis. Her lipase is back to normal today. She was on clear liquid diet yesterday and was started on a regular diet today by Dr. Eagle this morning. The patient had no abdominal pain, but she is tender on physical exam. She has no nausea, but she keeps belching and also has a lot of flatus. Her lipase is back to normal, but unfortunately bilirubin level and LFTs remain elevated, although there is some drop. The bilirubin today is 9.1, it has gone up from 8.6 to 9.1. The liver function tests show the ALT same as yesterday, AST same as yesterday, alkaline phosphatase 270, bilirubin is 9.1 today. Her lytes are normal. PLAN: Advance diet to regular diet. If she does well, she can probably go home or bring her back outpatient for repeat ERCP and removal of stone and will have to have stent placement again Job ID: [id number]
--- NOTE | 2020-10-15 17:18 | PRG ---
DATE OF SERVICE: 10/15/2020 SUBJECTIVE: Ms. Shanelle Banks is a very pleasant 50-year-old female laparoscopic cholecystectomy, ERCP. She was on a regular diet today. She is tolerating diet. she feels hungry. No abdominal pain. No nausea, vomiting. Abdomen is soft and nontender. RECOMMENDATION: From GI standpoint, hopefully the patient can be discharged home. I advised the patient to come back to the ER, if she develops any fever or chills, abdominal pain, or any new symptoms. If she does well, she will come back to see me in the next week. I will contact her to come back and see me in my office a week from today. Job ID: [id number]
[2020-10-16] MEDS: Piperacillin/Tazobactam 3.375 GM in Sodium Chloride 0.9% 100 ML IVPB SCH ×2 (00:58→05:52)
[2020-10-16] MEDS: Labetalol HCl 100 MG/20 ML VIAL SLOW IVP PRN (00:58)
[2020-10-16] MEDS: Acetaminophen 500 MG TAB PO SCH ×2 (00:58→05:51)
[2020-10-16 06:47] LABS: #Basophils 0.1 thou/uL (0.0-0.2); #Eosinphils 0.4 thou/uL (0.0-0.7); #Lymphocytes 1.2 thou/uL (1.20-3.40); #Monocytes 0.6 thou/uL (0.11-0.59); #Neutrophils 7.8 thou/uL (1.40-6.50); %Basophils 0.6 % (0.0-1.0); %Eosinophils 3.6 % (0.0-10.0); %Lymphocytes 12.4 % (21.0-51.0); %Monocytes 6.1 % (0.0-10.0); %Neutrophils 77.2 % (42.0-75.0); Hemoglobin 11.9 g/dL (12.0-16.0); Mean Corpuscular Hemoglobin 30.1 pg (27.0-31.0); Mean Corpuscular Volume 91.3 fL (78.0-98.0); Mean Platelet Volume 7.1 fL (7.4-10.4); Platelet Count 442 thou/uL (130-400); RBC Distribution Width 13.4 % (11.5-14.5); Red Blood Cell (RBC) Count 3.95 mill/uL (4.20-5.40)
[2020-10-16 07:11] LABS: ALT (SGPT) 96 U/L (8-55); AST (SGOT) 39 U/L (5-34); Albumin 3.4 g/dL (3.5-5.0); Alkaline Phosphatase 297 U/L (40-110); Anion Gap 15 mmol/L (10-20); BUN (Urea Nitrogen) 12 mg/dL (9.8-20.1); Bilirubin, Direct 4.6 mg/dL (0.1-0.3); Bilirubin, Total 6.2 mg/dL (0.2-1.2); Calc. Creatinine Clearance 144 mL/min (70-130); Calcium 9.1 mg/dL (7.8-10.44); Carbon Dioxide 22 mmol/L (22-29); Chloride 104 mmol/L (98-107); Estimated GFR-MDRD Greater than 90; Glucose 103 mg/dL (70-105); Lipase 76 U/L (8-78); Phosphorus 2.7 mg/dL (2.3-4.7); Potassium 3.5 mmol/L (3.5-5.1); Protein, Total 6.8 g/dL (6.0-8.3); Sodium 137 mmol/L (136-145)
[2020-10-16] MEDS: Amlodipine 10 MG TAB PO SCH (08:32)
[2020-10-16] MEDS: Famotidine/PF 20 mg/2ml Vial SLOW IVP SCH (08:32)
[2020-10-16] MEDS: Enoxaparin Sodium 40 MG/0.4 ML SYRINGE SC SCH (08:33)
[2020-10-16 08:36] VITALS: BP 143/80; TEMP 98.7
== END 2020-10-16 11:40 | disposition home or self-care (01) | DRG 417 ==
LOC: 3SW 00:16
PROVIDERS: ADMIT Internal Medicine; ATTEND Internal Medicine
PROC: 0FT44ZZ Resection of Gallbladder, Percutaneous Endoscopic Approach (ICD-10-PCS; principal; 2020-10-11)
PROC: 0FC98ZZ Extirpation of Matter from Common Bile Duct, Via Natural or Artificial Opening Endoscopic (ICD-10-PCS; 2020-10-11)
PROC: 0F798DZ Dilation of Common Bile Duct with Intraluminal Device, Via Natural or Artificial Opening Endoscopic (ICD-10-PCS; 2020-10-11)
DX: K80.63 Calculus of gallbladder and bile duct with acute cholecystitis with obstruction (principal); K85.90 Acute pancreatitis without necrosis or infection, unspecified; K91.89 Other postprocedural complications and disorders of digestive system; Y83.8 Other surgical procedures as the cause of abnormal reaction of the patient, or of later complication, without mention of misadventure at the time of the procedure; E87.6 Hypokalemia; E83.42 Hypomagnesemia; E83.39 Other disorders of phosphorus metabolism; Z90.711 Acquired absence of uterus with remaining cervical stump; Z88.5 Allergy status to narcotic agent; Z98.51 Tubal ligation status
CPT/HCPCS: 36415; 74018; 74181; 74330; 78226; 80048; 80053; 80061; 80076; 82248; 83605; 83690; 83735; 84100; 85025; 85610; 85730; 88304; A9537; J0171; J1100; J1200; J1610; J1650; J1885; J2270; J2405; J2543; J2704; J3010; J3475; J3480; J3490; J7050; Q0163; S0020; S0028

== ENCOUNTER 2023-03-22 07:43 | Outpatient (CLI) | payer BC | END 2023-03-22 07:44 | disposition home or self-care (01) | LOC: BICULT 07:43 | PROVIDERS: ATTEND Nurse Practitioner Family | DX: N63.20 Unspecified lump in the left breast, unspecified quadrant (principal) ==